=== PATIENT | female | born 1980 | race Hispanic/Latino ===

== ENCOUNTER 2017-07-31 11:25 | Emergency (ER) | payer OTHER ==
[2017-07-31 11:36] VITALS: BMI 21.2
--- NOTE | 2017-07-31 15:11 | OBHP ---
Datetime: 07/31/2017 12:16 IP Adm Impression: Term, intrauterine IP Admit Plan: Discharge home Admit Comment, IP Provider: 37 y/o F at 38.6 weeks GA, with ALVARADO 08/08/17, presenting with uter ine CTX that began this morning at 05:30 am. Ctx's are mildly painful, 2/10 intensity, occurs every 5 minutes. Mucous plug expulsed yesterday. No LOF or vaginal bleeding. FM present. Pt denies fever, he adache, CP, SOB, nausea or rash. NKDA Medications: PNV PMD: Dr Decker PMHx: denied PSHx: denied FHx: NC SHx: No tobacco, alcohol or rec drugs. A/P: 37 y/o F with IUP at 38.6 weeks GA, initiating labor. - Observe patient. - Will re-evaluate. At 14:55: Pt was re-evaluated, NO change in cervical dialtaion or effacement. Pt was offered to st art IV pitocin for labor augmentation or go home and return when active labor signs starts. - Pt decided to go home and return. - Labor precautions discussed with pt. Case discussed with Dr Decker, OB on cal. Estes PGY-1 Extremities - PN: Normal Abdomen - PN: Normal Back - PN: Normal Lungs - PN: Normal Heart - PN: Normal Thyroid - PN: Normal Neurologic - PN: Normal HEENT - PN: Normal General - PN: Normal Presentation-Admit: Vertex FHR - Baseline A Provider: 140 Membranes, Provider: Intact Comments, ACOG Physical Exam: Pt re-examined at 14:5, NO change in cervical dilation or effacement. Gestation - Est Wks by US: 38.6 Pool Provider: Negative EGA AdmitDate IP: 38.6 IP Chief Complaint: Uterine contractions NICHD Variability Prov Fetus A: Moderate 6-25bpm FHR Category Provider Fetus A: Category I Dilatation, Provider: 1 Effacement, Provider: 90 Station, Provider: -2
[2017-07-31 19:33] VITALS: BP 103/66; PULSE 96; RESP 16; TEMP 97.7; O2SAT 100
== END 2017-07-31 15:09 | disposition home or self-care (01) ==
LOC: H.EROB2 11:25 → H.L&D 11:26 → H.EROB2 15:09
DX: O26.93 Pregnancy related conditions, unspecified, third trimester (principal); R10.2 Pelvic and perineal pain; Z3A.38 38 weeks gestation of pregnancy

== ENCOUNTER 2017-07-31 23:47 | Inpatient (IN) | payer OTHER ==
[2017-08-01 00:22] VITALS: BMI 21.4
[2017-08-01] MEDS: Lactated Ringer's 1,000 ML IV SCH ×3 (00:30→02:30)
--- NOTE | 2017-08-01 00:59 | OBADHP ---
Datetime: 08/01/2017 00:44 Admit Comment, IP Provider: 37yo with IUP at 39wks presenting here today with contraction pain. She was earlier seen here and evaluated for irregular labor. She denies LOF or VB. Contraction pain Q 2-3 mins, Pain scale 9/10. Feels good movement. SUMEET- Q 2-3. FHR- Category 1, Cx- 3-/90/-2, Vertex Assessment: IUP at 39wks in Active Labor GBS - Negative. Plan: Admit to LND, Closely monitor for the progress of labor. Pelvic Type - PN: Adequate Extremities - PN: Normal Abdomen - PN: Normal Back - PN: Normal Breast - PN: Normal Lungs - PN: Normal Heart - PN: Normal Thyroid - PN: Normal Neurologic - PN: Normal HEENT - PN: Normal General - PN: Normal Presentation-Admit: Vertex FHR - Baseline A Provider: 150s Membranes, Provider: Bulging Contraction Comments Provider: Q 2-3 Comments, ACOG Physical Exam: Abd: soft, NT, BS present SFH- 39cm Gestation - Est Wks by US: 39.0 Vital Signs Provider: Reviewed IP Chief Complaint: Uterine contractions; Maternal discomfort NICHD Variability Prov Fetus A: Moderate 6-25bpm NICHD Accel Fetus A IP Provider: 15X15 FHR Category Provider Fetus A: Category I NICHD Decel Fetus A IP Provider: None Dilatation, Provider: -/-3 Effacement, Provider: 90 Station, Provider: -2 Genitourinary Exam: Normal DTRs - PN: Normal EGA AdmitDate IP: 39.0 IP Adm Impression: Term, intrauterine ; Active labor IP Admit Plan: Admit to unit; Initiate labor protocol Datetime: 07/31/2017 12:16 Pool Provider: Negative
[2017-08-01 01:04] LABS: BASO # 0.1 K/uL (0.0-0.2); BASO % 0.6 % (0.0-2.0); EOS # 0.1 K/uL (0.0-0.7); EOS % 0.4 % (0.0-4.0); LYMPH # 1.4 K/uL (1.0-4.3); LYMPH % 7.3 % (20.0-40.0); MEAN CELL VOLUME 89.1 fl (81.0-99.0); MEAN CORPUSCULAR HEMOGLOBIN 28.2 pg (27.0-31.0); MEAN CORPUSCULAR HGB CONC 31.6 g/dL (33.0-37.0); MEAN PLATELET VOLUME 10.6 fl (7.2-11.7); MONO # 1.3 K/uL (0.0-0.8); MONO % 6.6 % (0.0-10.0); NEUT # 16.2 K/uL (1.8-7.0); NEUT % 85.1 % (50.0-75.0); PLATELET COUNT 300 K/uL (130-400); RED CELL DISTRIBUTION WIDTH 13.1 % (11.5-14.5); WHITE BLOOD COUNT 19.1 K/uL (4.8-10.8)
[2017-08-01 01:13] LABS: ALB/GLOB RATIO 1.1 (1.0-2.1); ALKALINE PHOSPHATASE 111 U/L (38-126); ALT/SGPT 26 U/L (9-52); AST/SGOT 24 U/L (14-36); BILIRUBIN,TOTAL 0.6 mg/dl (0.2-1.3); BLOOD UREA NITROGEN 8 mg/dl (7-17); CALCIUM 9.8 mg/dL (8.4-10.2); CARBON DIOXIDE 17 mmol/L (22-30); CHLORIDE 105 mmol/L (98-107); GFR AFRICAN-AMERICAN > 60; GLUCOSE,RANDOM 98 mg/dL (65-105); POTASSIUM 3.8 MMOL/L (3.6-5.0); SODIUM 133 mmol/l (132-148); TOTAL PROTEIN 7.8 G/DL (6.3-8.2)
[2017-08-01] MEDS ORDERED: Bupivacaine HCl 0.25% PF (10 ml) Inj ONE (01:26)
[2017-08-01] MEDS ORDERED: Fentanyl/Bupivacaine HCl 250 ML EPI ONE (01:26)
[2017-08-01 03:53] LABS: NEUTROPHIL 84 % (42-75); TOTAL CELLS COUNTED 100
[2017-08-01 03:54] LABS: LARGE PLATELETS PRESENT
--- NOTE | 2017-08-01 05:07 | OBPN ---
Datetime: 08/01/2017 04:58 IP Progress Impression: Normal progression of labor; Reassuring heart rate IP Procedures: Artificial ROM; Sterile Vag Exam IP Progress Plan: Continue present management; Anticipate Vaginal Delivery Membranes, Provider: Ruptured Amniotic Fluid Color, Provider: Clear Contraction Comments Provider: Q 2-3 FHR - Baseline A Provider: 150s Gestation - Est Wks by US: 39.0 Presentation-Admit: Vertex IP Progress Note Comment: IUP at 39wks in active labor S/P Epidureal for pain [place]- Q 2-3, FHR- Category 1 Cx- 5/100/-1, membranes bulging, Vertex. Arm done- clear fluid Assessment: IUP at 39wks Active Labor AROM done Plan: Continue Monitoring for the progress of labor. Vital Signs Provider: Reviewed NICHD Accel Fetus A IP Provider: 10X10 FHR Category Provider Fetus A: Category I NICHD Variability Prov Fetus A: Moderate 6-25bpm Dilatation, Provider: 5-6 Effacement, Provider: 100 Station, Provider: -1 Datetime: 08/01/2017 00:44 NICHD Decel Fetus A IP Provider: None Datetime: 07/31/2017 12:16 Pool Provider: Negative
[2017-08-01 06:10] LABS: RBC URINE 1 /hpf (0-3); URINE BILIRUBIN NEGATIVE (NEGATIVE); URINE BLOOD MODERATE (NEGATIVE); URINE COLOR YELLOW (YELLOW); URINE GLUCOSE (UA) NEG (Normal); URINE KETONE NEGATIVE (NEGATIVE); URINE LEUKOCYTE ESTERASE NEG Leu/uL (Negative); URINE PROTEIN NEGATIVE (NEGATIVE); URINE UROBILINOGEN 0.2-1.0 mg/dL (0.2-1.0); WBC URINE < 1 /hpf (0-5)
[2017-08-01] MEDS ORDERED: Lidocaine 1% Inj (20ml) ONE (08:35)
--- NOTE | 2017-08-01 11:22 | OBDS ---
DELIVERY PERSONNEL Delivery Doctor: Naida Decker MD Anesthesiologist: Lakeshia Mesa MD Resident: Romulo Martinez PGY1 MATERNAL INFORMATION Delivery Anesthesia: Epidural Medications in Delivery: Pitocin 20u/1000LR Placenta Cultured: No Provider Comments: Uncomplicated spontaneous Vaginal delivery of a viable female with BW of 3 050gms and scores of 9 and 9. A Right mediolateral second degree laceration was repeaired with #2-0 chromic with good cosmesis under epidural anesthesia. LABOR SUMMARY EDC: 08/08/2017 00:00 No. Babies in Womb: 1 Attempted: No Labor Anesthesia: Epidural LABOR INFORMATION Reason for Induction: Not Applicable Onset of Labor: 07/31/2017 21:00 Complete Dilatation: 08/01/2017 09:45 Oxytocin: N/A Group B Beta Strep: Negative Antibiotics # of Doses: na Antibiotics Time of Last Dose: na Steroids Given: None Reason Steroids Not Administered: Not Applicable MEMBRANES Membranes Rupture Method: Artificial Rupture of Membranes: 08/01/2017 04:55 Length of Rupture (hrs): 5.67 Amniotic Fluid Color: Clear Amniotic Fluid Amount: Moderate Amniotic Fluid Odor: Normal STAGES OF LABOR Stage 1 hrs: 12 Stage 1 min: 45 Stage 2 hrs: 0 Stage 2 min: 50 Stage 3 hrs: 0 Stage 3 min: 10 Total Time in Labor hrs: 13 Total Time in Labor min: 45 VAGINAL DELIVERY Episiotomy: None Laceration Extension: Second Degree Laceration Type: Perineal Laceration Repair: Yes Laceration Repair Note: Under epidural anesthesia the second degree laceration was repaired using ch romic number 2-0 with good cosmesis. Sharps Count Correct: Yes BABY A INFORMATION Infant Delivery Date/Time: 08/01/2017 10:35 Method of Delivery: Vaginal Born in Route : No : N/A Forceps: N/A Vacuum Extraction: N/A Shoulder Dystocia : No SHOULDER DYSTOCIA BABY A Infant Delivery Date/Time: 08/01/2017 10:35 PRESENTATION/POSITION BABY A Presentation: Cephalic PLACENTA INFORMATION BABY A Placenta Delivery Time : 08/01/2017 10:45 Placenta Method of Delivery: Spontaneous Placenta Status: Delivered SCORES BABY A Heart Rate 1 min: >100 bpm Resp Effort 1 min: Good Cry Reflex Irritability 1 min: Cough or Sneeze or Pulls Away Muscle Tone 1 min: Active Motion Color 1 min: Body [place], Extremities Blue SCORE 1 MIN: 9 Heart Rate 5 min: >100 bpm Resp Effort 5 min: Good Cry Reflex Irritability 5 min: Cough or Sneeze or Pulls Away Muscle Tone 5 min: Active Motion Color 5 min: Body [place], Extremities Blue SCORE 5 MIN: 9 INFORMATION BABY A Gestational Age at Delivery: 39.0 Gestational Status: Term Outcome : Liveborn Infant Condition : Stable Infant Sex: Female IDENTIFICATION/MEDS BABY A ID Band Number: [id number] WEIGHT/LENGTH BABY A Infant Birthweight (gms): 3050 Infant Weight (lb): 6 Weight (oz): 12 CORD INFORMATION BABY A No. Cord Vessels: 3 Nuchal Cord : N/A Cord Blood Taken: Yes Infant Suction: None
[2017-08-01] MEDS: Oxycodone/Acetaminophen 5/325 mg Tab PO PRN ×2 (14:48→22:30)
[2017-08-01] MEDS ORDERED: Oxycodone/Acetaminophen 5/325 mg Tab PO ONE (17:35)
[2017-08-01] MEDS: Benzocaine/Menthol SPRAY TOP PRN (17:58)
[2017-08-02 05:57] LABS: HEMATOCRIT 29.7 % (34.0-47.0); MEAN CELL VOLUME 88.1 fl (81.0-99.0); MEAN CORPUSCULAR HEMOGLOBIN 28.7 pg (27.0-31.0); MEAN CORPUSCULAR HGB CONC 32.6 g/dL (33.0-37.0); RED CELL DISTRIBUTION WIDTH 13.1 % (11.5-14.5); WHITE BLOOD COUNT 16.3 K/uL (4.8-10.8)
[2017-08-02] MEDS: Oxycodone/Acetaminophen 5/325 mg Tab PO PRN ×3 (06:33→19:54)
[2017-08-02] MEDS: Lactated Ringer's 1,000 ML IV SCH (07:00)
--- NOTE | 2017-08-02 08:50 | OBPPN ---
Datetime: 08/02/2017 08:47 PP Pain Prov: Within normal limits PP Nausea Prov: Denies PP Flatus Prov: Yes PP Breasts Prov: Normal PP Heart Prov: Normal PP Lungs Prov: Normal PP Abdomen/Uterus Prov: Normal PP Lochia Prov: Normal PP Vulva/Perineum Prov: Normal PP CVA Tenderness Prov: Normal PP Extremities Prov: Normal PP Comments Phys Exam Prov: Abd: Soft, NT, BS- present Uterus- NT, Firm PP Impression Prov: Normal progression PP Plan Prov: Continue present management PP Progress Note Prov: S/P , POD#1 Clinically stable. Plan: Continue care. For rhogam before discharge. Vital Signs Provider PP: Reviewed
[2017-08-03] MEDS: Oxycodone/Acetaminophen 5/325 mg Tab PO PRN ×2 (00:47→07:24)
--- NOTE | 2017-08-03 07:14 | OBPPN ---
Datetime: 08/03/2017 07:10 PP Pain Prov: Within normal limits PP Nausea Prov: Denies PP Flatus Prov: Yes PP Breasts Prov: Normal PP Heart Prov: Normal PP Lungs Prov: Normal PP Abdomen/Uterus Prov: Normal PP Lochia Prov: Normal PP Vulva/Perineum Prov: Normal PP CVA Tenderness Prov: Normal PP Extremities Prov: Normal PP Comments Phys Exam Prov: Abd: Soft, NT, BS- present. UT- Firm, NT No calf tenderness B/L PP Impression Prov: Normal progression PP Progress Note Prov: S/p , POD #2, Clinically Stable. Plan: D/C home. F/U With Dr Kelley in 6 weeks. Vital Signs Provider PP: Reviewed
--- NOTE | 2017-08-03 07:16 | OBDCSUM ---
Datetime: 08/03/2017 07:13 Discharged to, Provider: Home Follow up at, Provider: Dr Kelley Disch Instr Activity: Normal activity Disch Instr Diet: Regular Discharge Instructions, Provider: Routine instructions given Discharge Diagnosis, Provider: Term Delivered Discharge Time: 08/03/2017 07:13 Follow up in weeks, Provider: 6 weeks Disch Referrals: None Contraception discussed, Prov: Yes Discharge Comment, Provider: S/P Uncomplicated , Clinically Stable Discharge Diagnosis Prov Other: S/P Uncomplicated , Clinically Stable
[2017-08-03] MEDS: Benzocaine/Menthol SPRAY TOP PRN (07:26)
[2017-08-04 11:52] VITALS: BP 112/74; PULSE 85; RESP 19; TEMP 98.6; O2SAT 99
== END 2017-08-03 23:15 | disposition home or self-care (01) | DRG 775 ==
LOC: H.EROB2 23:47 → H.L&D 08-01 00:22 → H.OB/GYN 08-01 15:31
PROVIDERS: ADMIT Obstetrics & Gynecology; ATTEND Obstetrics & Gynecology
PROC: 10E0XZZ Delivery of Products of Conception, External Approach (ICD-10-PCS; principal; 2017-08-01)
PROC: 0KQM0ZZ Repair Perineum Muscle, Open Approach (ICD-10-PCS; 2017-08-01)
PROC: 10907ZC Drainage of Amniotic Fluid, Therapeutic from Products of Conception, Via Natural or Artificial Opening (ICD-10-PCS; 2017-08-01)
DX: O70.1 Second degree perineal laceration during delivery (principal); Z37.0 Single live birth; O09.523 Supervision of elderly multigravida, third trimester; Z3A.39 39 weeks gestation of pregnancy

== ENCOUNTER 2018-10-20 10:42 | Emergency (ER) | payer BC, MEDICAID, OTHER ==
[2018-05-02 14:02] VITALS: BMI 16.8
--- NOTE | 2018-10-20 13:58 | US ---
Date of service: 10/20/2018 PROCEDURE: Limited Ob ultrasound HISTORY: 21 wks bleeding/cramping cervical length only COMPARISON: None available. TECHNIQUE: Transvaginal pelvic ultrasound was performed. FINDINGS: The cervix is normal in appearance. The cervical length measures 4.24 cm. The cervix is long and closed. IMPRESSION: Cervical length measures 4.24 cm.
[2018-10-20 14:33] LABS: SQUAMOUS EPITHIAL 1 /hpf (0-5); URINE BACTERIA OCC (<OCC); URINE BILIRUBIN NEGATIVE (NEGATIVE); URINE BLOOD NEGATIVE (NEGATIVE); URINE CLARITY SLIGHTY-CLOUDY (Clear); URINE COLOR STRAW (YELLOW); URINE GLUCOSE (UA) NEG (NEGATIVE); URINE LEUKOCYTE ESTERASE NEG Leu/uL (Negative); URINE PROTEIN NEGATIVE (NEGATIVE); URINE UROBILINOGEN 0.2-1.0 mg/dL (0.2-1.0)
[2018-10-20 19:49] VITALS: BP 95/57; PULSE 74; RESP 16; TEMP 98
--- NOTE | 2018-10-21 08:37 | OBHP ---
Datetime: 10/20/2018 12:03 IP Adm Impression: , intrauterine IP Admit Plan: Observation/Evaluation; Discharge home Admit Comment, IP Provider: 38-year-old at 21.1 wks MENA presents after an episode of vaginal bleeding after a strenuous bowel movement at 5 am (roughly 6 hours prior to presentation). She repor ts mild abdominal cramping since the bleeding but denies any other blood or loss of fluid from vagina . Endorses good movement. Last sexual intercourse was at time of conception. Denies headache, p ainful contractions, dysuria, fever, dizziness, new-onset edema, SOB, chest pain and diarrhea. She re ports picking up her 20lb daughter more often than usual yesterday but denies any type of strenuous a ctivity. OBGYN Dr Drew, last seen Sep 26, last ultrasound yest 10/19, next office apt October 24. OBGYN: Dr Drew PMH: denies Meds: PNV Allergies: denies OBHx: 1x FT 2016, no complications, 1 x MAB 2003 Social: denies FHx: denies Labs: 1st tri wnl as per patient ROS: all other systems reviewed and negative unless noted in HPI PE: Gen: comfortable, in no acute distress CV: RRR Resp: no respiratory distress Abd: IUP, no tenderness to palpation Skin: no rash Ext: no edema Pelvic: no active bleeding or external lesions noted. 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 no active bleeding. cervical os mil dly erthymatic. A+P:38-year-old at 21.1 wks EGLinnette presents after an episode of vaginal bleeding at 5 am, rou ghly 6 hours prior to presentation. -Doppler: 147 bpm -TV U/S: cervical length 4.24cm -UA: wnl -SAB/PTL ED precautions given, all questions answered Case discussed with Dr Gressock Svitlana McKitish PGY1 Pelvic Type - PN: Adequate Extremities - PN: Normal Abdomen - PN: Normal Back - PN: Normal Breast - PN: Not Done Lungs - PN: Normal Heart - PN: Normal Thyroid - PN: Not Done Neurologic - PN: Not Done HEENT - PN: Normal General - PN: Normal FHR - Baseline A Provider: 147 Comments, ACOG Physical Exam: as below EGA AdmitDate IP: 21.2 Vital Signs Provider: Reviewed; Within Normal Limits IP Chief Complaint: Vaginal bleeding Genitourinary Exam: Normal DTRs - PN: Not Done
== END 2018-10-20 15:10 | disposition home or self-care (01) ==
LOC: H.EROB2 10:42
DX: O26.92 Pregnancy related conditions, unspecified, second trimester (principal); R10.2 Pelvic and perineal pain; O46.92 Antepartum hemorrhage, unspecified, second trimester; Z3A.21 21 weeks gestation of pregnancy

== ENCOUNTER 2018-11-12 08:41 | Emergency (ER) | payer BC ==
[2018-11-12 09:04] VITALS: BMI 19.8
--- NOTE | 2018-11-12 12:24 | US ---
Date of service: 11/12/2018 HISTORY: Cervical length check COMPARISON: None available. TECHNIQUE: Transvaginal sonographic evaluation limited to assess cervical length performed FINDINGS: UTERUS: Living intrauterine gestation with heart rate documented at 147 BPM in cephalic presentation. Placenta is anteriorly located free of the cervical os. ENDOMETRIUM: Measures mm in diameter. Unremarkable. CERVIX: Cervix measures approximately 3.3 cm. OTHER FINDINGS: None. IMPRESSION: Limited ultrasound to assess cervical length. Cervix measures 3.3 cm. Living intrauterine gestation heart rate document at 1:47 BPM in cephalic presentation.
[2018-11-12 19:06] VITALS: BP 96/63; PULSE 85; RESP 18; TEMP 97.8; O2SAT 100
== END 2018-11-12 13:10 | disposition home or self-care (01) ==
LOC: H.EROB2 08:41
DX: O26.852 Spotting complicating pregnancy, second trimester (principal); O26.92 Pregnancy related conditions, unspecified, second trimester; R10.2 Pelvic and perineal pain; Z3A.24 24 weeks gestation of pregnancy